=== PATIENT | female | born 1945 | race American Indian/Alaskan Native ===

== ENCOUNTER 2019-06-01 14:16 | Emergency (ER) | payer OTHER, MEDICARE ==
[2019-06-01 15:16] VITALS: BP 158/73
[2019-06-01] MEDS ORDERED: ULTRAM PO ONE (16:57)
[2019-06-01] MEDS ORDERED: ULTRAM ONE (17:00)
--- NOTE | 2019-06-01 17:23 | XRay Report ---
CHEST 1 VIEW 06/01/2019 5:10 PM INDICATION / CLINICAL INFORMATION: chest pain. COMPARISON: None available. FINDINGS: SUPPORT DEVICES: None. HEART / MEDIASTINUM: No significant abnormality. LUNGS / PLEURA: No significant pulmonary or pleural abnormality. No pneumothorax. ADDITIONAL FINDINGS: No significant additional findings. IMPRESSION: 1. No acute findings. Signer Name: Vince Chun MD Signed: 06/01/2019 5:19 PM Workstation Name: [id number]
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
--- NOTE | 2019-06-01 19:10 | Cat Scan Report ---
CT LUMBAR SPINE: 06/01/2019 INDICATION / CLINICAL INFORMATION: back pain. Trauma COMPARISON: None available. FINDINGS: CT images of the lumbar spine were obtained. Images are evaluated in the axial, coronal, and sagitta l planes. There is no evidence of acute abnormality. Degenerative disc and facet changes are present at several levels. Vertebral body height is preserved. There is a mild left convex scoliosis. LEVEL BY LEVEL ANALYSIS: L5-S1: Moderate diffuse disc bulging, more pronounced on the right than on the left. Bilateral zach inal narrowing is present, more pronounced on the right. L4-5: Disc space narrowing and diffuse disc bulging associated with moderately severe central canal n arrowing. L3-4: Moderate diffuse disc bulging. L2-3: Unremarkable. PARASPINAL STRUCTURES: Unremarkable. IMPRESSION: No evidence of acute abnormality. Degenerative changes. All CT scans at this location are performed using dose reduction to ALARA by means of automated expos ure control. Signer Name: Don Tabor MD Signed: 06/01/2019 7:05 PM Workstation Name: [id number]
--- NOTE | 2019-06-01 19:13 | Cat Scan Report ---
CT CERVICAL SPINE: INDICATION / CLINICAL INFORMATION: back pain. Trauma COMPARISON: None available. FINDINGS: CT images of the cervical spine were obtained. Images are evaluated in the axial, coronal, and sagit kiana planes. There is no evidence of acute abnormality. Degenerative disc and facet changes are present, associated with right convex scoliosis. Disc space narrowing and diffuse disc bulging is present at the C5-6 and C6-7 levels. LEVEL BY LEVEL ANALYSIS: . CRANIOCERVICAL JUNCTION: Unremarkable. PARASPINAL STRUCTURES: There is diffuse enlargement of the left lobe of the thyroid, consistent with the presence of a left thyroid nodule measuring 4.2 cm. Left lobe of thyroid extends partially below the upper margin of the sternum. IMPRESSION: No acute abnormality. Degenerative changes. Left thyroid enlargement. INCIDENTAL THYROID NODULE RECOMMENDATIONS Nonpalpable nodules detected on US or other anatomic imaging studies are termed incidentally discover ed nodules or incidentalomas. Nonpalpable nodules have the same risk of malignancy as palpable nodule s with the same size. Generally, only nodules >1 cm should be evaluated, since they have a greater po tential to be clinically significant cancers. (LORENA, 2009). Follow up for incidental thyroid nodules <1 cm is not recommended. In patients <35 years with an incidental thyroid nodule detected on CT, MRI, or extrathyroidal ultras ound, dedicated thyroid ultrasound is recommended if the nodule is 1 cm, has no suspicious imaging fe atures, and if the patient has normal life expectancy. In patients 35 years with an incidental thyroid nodule detected on CT, MRI, or extrathyroidal ultraso und, dedicated thyroid ultrasound is recommended if the nodule is 1.5 cm, has no suspicious imaging f eatures, and if the patient has normal life expectancy. All CT scans at this location are performed using dose reduction to ALARA by means of automated expos ure control. Signer Name: Don Tabor MD Signed: 06/01/2019 7:09 PM Workstation Name: [id number]
--- NOTE | 2019-06-01 19:15 | Cat Scan Report ---
CT thoracic SPINE: 06/01/2019 INDICATION / CLINICAL INFORMATION: back pain. Trauma COMPARISON: None available. FINDINGS: CT images of the thoracic spine were obtained. Images are evaluated in the axial, coronal, and sagit kiana planes. There is no evidence of acute traumatic injury. Left convex scoliosis of the upper thoracic spine is noted. Vertebral body alignment is otherwise unr emarkable. Vertebral body heights are well preserved. Age-related disc space narrowing and osteophyte formation is present at multiple levels in the midtho racic spine. IMPRESSION: No acute abnormality. Degenerative changes. All CT scans at this location are performed using dose reduction to ALARA by means of automated expos ure control. Signer Name: Don Tabor MD Signed: 06/01/2019 7:11 PM Workstation Name: [id number]
== END 2019-06-01 19:59 | disposition home or self-care (01) ==
LOC: ED 14:16
DX: S16.1XXA Strain of muscle, fascia and tendon at neck level, initial encounter (principal); S39.012A Strain of muscle, fascia and tendon of lower back, initial encounter; R07.89 Other chest pain; E04.1 Nontoxic single thyroid nodule; I10 Essential (primary) hypertension; E11.9 Type 2 diabetes mellitus without complications; Z79.1 Long term (current) use of non-steroidal anti-inflammatories (NSAID); Z88.0 Allergy status to penicillin; V89.2XXA Person injured in unspecified motor-vehicle accident, traffic, initial encounter; Y93.89 Activity, other specified; Y92.488 Other paved roadways as the place of occurrence of the external cause; Y99.8 Other external cause status
CPT/HCPCS: 71045; 72125; 72128; 72131; 99284